=== PATIENT | female | born 1970 | race Caucasian/White ===

== ENCOUNTER 2020-04-07 11:17 | Outpatient (CLI) | payer OTHER, SELFPAY ==
--- NOTE | ~2020-04-07 | XR_ITS ---
XR chest 2V DATE: 04/07/2020 12:00 INDICATION: Cough for one month TECHNIQUE: 2 views COMPARISON: 04/24/2016 PA chest FINDINGS: Normal heart size. No hilar or mediastinal enlargement. No pulmonary infiltrate or consolid ation, pleural effusion or pulmonary vascular congestion or pneumothorax. IMPRESSION: No active cardiopulmonary disease Reviewed, dictated and finalized at location A.
== END 2020-04-07 11:18 | disposition home or self-care (01) ==
DX: R05 Cough (principal)
CPT/HCPCS: 71046

== ENCOUNTER 2021-03-09 09:32 | Outpatient (CLI) | payer OTHER, SELFPAY ==
--- NOTE | 2021-03-09 09:30 | ECG_ITS ---
Measurements Intervals [place] Rate: 56 P: 32 ME: 197 QRS: 63 QRSD: 90 T: 66 QT: 420 QTc: 405 Interpretive Statements SINUS BRADYCARDIA LOW QRS VOLTAGE IN PRECORDIAL LEADS CANNOT RULE OUT SEPTAL INFARCT, AGE INDETERMINATE ABNORMAL ECG Electronically Signed On 03-09-2021 9:51:50 CDT by Kelvin Pascual D.O.
== END 2021-03-09 09:33 | disposition home or self-care (01) ==
LOC: ANHSURGERY 09:35
PROVIDERS: Visit Provider Orthopaedic Surgery
DX: Z01.810 Encounter for preprocedural cardiovascular examination (principal); Z87.891 Personal history of nicotine dependence; R00.1 Bradycardia, unspecified; I25.2 Old myocardial infarction
CPT/HCPCS: 93005

== ENCOUNTER 2021-03-13 00:58 | Day surgery (SDC) | payer OTHER, SELFPAY ==
[2021-03-07 12:45] VITALS: BMI 23.6
--- NOTE | 2021-03-12 14:48 | WPDANESEPPF ---
Anes - Initial Pre Proc Eval Procedure: Operation Date: 03/13/21 14:00 Proposed Procedures p Open Debridement Right Lateral Epicondyle - Javier Rizo MD Date/Time: 03/12/21 14:48 Surgeon: Javier Rizo MD Pre Op Diagnosis: right lateral epicondylitis Patient Data Age: 50 Gender: F Height: 1.75 m Weight: 72.57 kg Allergies Allergy/AdvReac Type Severity Reaction Status Date / Time oxycodone AdvReac Severe NAUSEA AND Verified 03/13/21 12:28 VOMITING hydrocodone AdvReac Mild Itching Verified 03/13/21 12:28 Home Medications Medication Instructions Recorded Confirmed Type levothyroxine 100 mcg capsule 100 mcg PO DAILY 08/07/20 03/13/21 History ibuprofen 800 mg tablet 800 mg PO TID PRN 02/12/21 03/13/21 History methylprednisolone 4 mg tablets in See Rx Instructions PO PER PKG DIR 03/05/21 03/13/21 Rx a dose pack #21 ea hydrocortisone 1 applic TOPICAL TID PRN 03/07/21 03/13/21 History ECG: Date of Service: 03/09/21 Procedure(s): CA 12 lead EKG Accession Number(s): [id number] cc: ~ Measurements Intervals [place] Rate: 56 P: 32 WA: 197 QRS: 63 QRSD: 90 T: 66 QT: 420 QTc: 405 Interpretive Statements SINUS BRADYCARDIA LOW QRS VOLTAGE IN PRECORDIAL LEADS CANNOT RULE OUT SEPTAL INFARCT, AGE INDETERMINATE ABNORMAL ECG Electronically Signed On 03-09-2021 9:51:50 CDT by Kelvin Pascual D.O. Dictated By: Kelvin Pascual DO 03/09/21 0951 Patient hx anesthesia problems: none Family hx anesthesia problems: none PMFSH Past Medical History Medical History (Updated 03/12/21 @ 14:49 by Cheikh Sinclair MD) Eczema Hypothyroidism Lateral epicondylitis of right elbow Family History Family History Father Diabetes mellitus Hypertension Acute myocardial infarction Family history of congestive heart failure Social History Social History Smoking packs per day: 1 Smoking cigarettes per day: 20.0 Years smoked: 25 Smoking pack-years: 25.00 Smoking status: Former smoker Tobacco type: cigarettes Second hand tobacco smoke exposure: Yes (spouse smokes) Smoking end date: 09/27/06 Alcohol intake: current Drinks per week: 4 Alcohol use details: hard liquor Substance use: never Substance use type: does not use Living arrangements: with family Spiritual care concerns: No Anes - Eval Final PreProcedure Day of Procedure 03/12/21 14:48 Patient weight: overweight Heart: regular rate and rhythm Lungs: clear to auscultation and normal air movement Airway: Mallampati scale class II Neurological: alert and oriented Last oral intake: >/= 8 hours ASA classification: II Emergent: no Anesthetic plan: proceed Anesthesia type and monitoring: general LMA Informed Consent: The patient's anesthetic plan and its attendant risks and benefits were discussed with the patient/family/POA. Questions were solicited and answers provided to the satisfaction of the patient/family/POA.
[2021-03-13] VITALS (11 sets, daily range): BP systolic 96–132; BP diastolic 58–80; PULSE 49–70; RESP 12–16; TEMP 36.1–36.8; O2SAT 95–100
--- NOTE | 2021-03-13 09:45 | WPDHPUPDATE1 ---
History and Physical Update Update Date/Time: 03/13/21 09:45 History and Physical has been reviewed, including an updated exam of the patient. There are NO changes in the patient's condition. Risks, benefits, and alternatives have been discussed and questions answered. Patient agrees to proceed with procedure.
[2021-03-13] MEDS: ACETAMINOPHEN 500 MG TABLET 1000 MG PO (12:33)
[2021-03-13] MEDS: LACTATED RINGERS 1,000 ML 30 ML IV CONT ×2 (13:02→14:51)
[2021-03-13] MEDS: KETOROLAC 15 MG/ML VIAL (*BKC) IV PUSH (13:05)
[2021-03-13] MEDS: ceFAZolin 2 GM/D5W 50 ML 2 GM/50 ML BAG IVPB (13:37)
[2021-03-13] MEDS: BUPIVACAINE HCL 0.5% PF 30 ML VIAL INFILTRATE (14:09)
[2021-03-13] MEDS: fentaNYL CITRATE INJ (*CRX) 100 MCG/2 ML VIAL 25 MCG IV PUSH ×4 (15:01→15:23)
[2021-03-13] MEDS: HYDROmorphone HCL INJ (*CRX) 1 MG/ML SYR 0.25 MG IV PUSH ×2 (15:34→15:52)
--- NOTE | 2021-03-13 15:50 | W.PM.PROC2 ---
Procedure Note - Detailed Date of Procedure 03/13/21 Pre-op Diagnosis right lateral epicondylitis Post-op Diagnosis same Procedure Performed Lateral epicondylitis debridement right elbow. Surgeon Javier Rizo MD Anesthesia general Description of Procedure Operative details: The patient was brought to the operating room. Preoperative antibiotics were given. A general anesthetic was administered. The arm was prepped and draped in the usual sterile fashion with a well-padded tourniquet on the arm. The limb was exsanguinated and the tourniquet inflated to 250 mililiters of mercury. A longitudinal incision was created over the pathological site at the lateral epicondyle. Dissection was brought down to the interval between the common extensor tendons and the extensor carpi radialis longus. The muscle was elevated, exposing the extensor carpi radialis brevis. Degenerative pathologic tendon was identified and excised sharply. The lateral epicondyle was abraded with a rongeur. The scratch test was to confirm complete excision of pathologic tissue. The wound was carefully irrigated. The tourniquet was released. The extensor tendon origin was repaired with [id number] sutures #0 Vicryl . The skin was closed with interrupted 3-0 Monocryl suture followed by running 4-0 Monocryl suture and Steri-Strips. Sterile dressing was applied with the wrist splint. The patient was extubated and brought to the recovery room in stable condition. Estimated Blood Loss 5 Pathology none sent Complications No immediate complications Condition stable Disposition PACU
[2021-03-13] MEDS: traMADol HCL (*CRX) 50 MG TABLET PO (16:19)
[2021-03-13] MEDS: ONDANSETRON INJ 4 MG/2 ML VIAL IV PUSH (16:21)
[2021-03-13] MEDS: diphenhydrAMINE HCl INJ 50 MG/ML VIAL 25 MG IV PUSH (17:04)
[2021-03-13] MEDS: SCOPOLAMINE 1.5 MG PATCH TRANSDERM (17:06)
== END 2021-03-13 18:00 | disposition home or self-care (01) ==
PROVIDERS: Visit Provider Orthopaedic Surgery
PROC: (CPT 24110; principal; 2021-03-13 14:00)
DX: M77.11 Lateral epicondylitis, right elbow (principal); E03.9 Hypothyroidism, unspecified; L30.9 Dermatitis, unspecified; Z87.891 Personal history of nicotine dependence
CPT/HCPCS: 24359; 93005; A4565; A9270; J0690; J1100; J1170; J1200; J1885; J2250; J2405; J2704; J3010; J7120

== ENCOUNTER 2022-12-26 20:43 | Emergency (ER) | payer OTHER, SELFPAY ==
[2022-12-26] VITALS (11 sets, daily range): BP systolic 111–140; BP diastolic 78–83; PULSE 53–77; RESP 10–16; TEMP 36.1; O2SAT 97–100
--- NOTE | ~2022-12-26 | XR_ITS ---
EXAMINATION: XR chest 2V DATE: 12/26/2022 21:30 INDICATION: 3 days of midsternal chest pain TECHNIQUE: PA and lateral views of the chest were obtained. COMPARISON: Chest radiograph dated 04/07/20 FINDINGS: The lungs remain clear with no focal airspace opacities, pulmonary edema, pleural effusion or pneumot horax. The cardiomediastinal silhouette is normal. Minimal S-shaped curvature of the mid to upper tho racic spine with mild spondylosis. IMPRESSION: 1. No acute cardiopulmonary disease. Reviewed, dictated and finalized at location A.
--- NOTE | 2022-12-26 20:44 | ECG_ITS ---
Measurements Intervals [place] Rate: 69 P: 34 DC: 191 QRS: 61 QRSD: 85 T: 72 QT: 384 QTc: 411 Interpretive Statements SINUS RHYTHM LOW QRS VOLTAGE IN PRECORDIAL LEADS [QRS DEFLECTION < 1.0 mV IN CHEST LEADS] CANNOT RULE OUT SEPTAL MYOCARDIAL INFARCTION , PROBABLY OLD [40+ ms Q WAVE IN V1/V2] COMPARED TO ECG 03/09/2021 09:45:48 SINUS RHYTHM NOW PRESENT Electronically Signed On 12-27-2022 13:45:35 CDT by Efrem Omalley M.D.
[2022-12-26 21:04] LABS: Basophils Absolute Auto 0.1 K/mm3 (0.0-0.1); Basophils Percent Auto 1.2 % (0.2-1.2); Eosinophils Absolute Auto 0.3 K/mm3 (0-0.3); Eosinophils Percent Auto 4.4 % (0-4.4); Hematocrit 38.1 % (37.0-47.0); Hemoglobin 12.5 g/dL (12.0-15.0); Immature Granulocyte Absolute 0.02 K/mm3 (0.00-0.031); Immature Granulocyte Percent A 0.3 % (0-0.5); Lymphocytes Absolute Auto 2.37 K/mm3 (0.9-3.2); Lymphocytes Percent Auto 36.9 % (18.3-44.2); Mean Corpuscular HGB Conc 32.8 g/dl (32-36); Mean Corpuscular Hemoglobin 30.5 pg (26-34); Mean Corpuscular Volume 92.9 fl (80-100); Mean Platelet Volume 9.5 fl (7.4-10.4); Monocytes Absolute Auto 0.5 K/mm3 (0.1-0.6); Monocytes Percent Auto 7.6 % (2.6-8.5); Neutrophils Absolute Auto 3.2 K/mm3 (1.3-6.7); Neutrophils Percent Auto 49.6 % (45.5-73.1); Platelet Count Result 308 k/mm3 (150-375); Red Cell Distribution Width 12.8 % (11.5-14.5); White Blood Count 6.4 K/mm3 (4.5-10.0)
[2022-12-26 21:13] LABS: Alanine Aminotransferase 22 U/L (6-35); Alkaline Phosphatase 69 U/L (38-126); Anion Gap 7 mmol/L (8-16); Aspartate Amino Transferase 29 U/L (14-36); Bilirubin,Total 0.4 mg/dL (0.2-1.3); Blood Urea Nitrogen 19 mg/dL (7-17); Calcium 9.4 mg/dL (8.4-10.2); Carbon Dioxide 30 mmol/L (22-30); Chloride 102 mmol/L (98-107); Estimated CRCL calculation 85 ml/min; Estimated Glomerular Filt Rate > 60; Glucose 97 mg/dL (65-110); Lipase 106 U/L (23-300); Potassium 3.7 mmol/L (3.4-5.0); Sodium 139 mmol/L (137-145)
[2022-12-26 21:14] LABS: INR 0.9; Prothrombin Time 12.8 Seconds (11.1-14.7)
[2022-12-26 21:15] LABS: Partial Thromboplastin Time 29.7 SECONDS (22.3-36.8)
[2022-12-26 21:26] LABS: Troponin I < 0.012 ng/mL (0.000-0.034)
--- NOTE | 2022-12-26 21:53 | ED.CHESTPAIN ---
HPI - Chest Pain General Chief Complaint: Chest Pain Stated Complaint: chest pain since Friday Time Seen by Provider: 12/26/22 21:30 History of Present Illness HPI narrative: 52-year-old female reports for evaluation of intermittent left sternal chest pain x3 days. Pt reports the pain is a dull ache with intermittent sharp pains. States it does not radiate anywhere and is not pleuritic. She reports the pain occurs while she is sitting down and lasts ~2 hours then spontaneously resolved. Pt endorses this pain has happened before when she was under stress last year after her sister was dx with glioblastoma. She states she was mildly stressed last week prior the onset of her symptoms, but does not feel stressed or anxious currently. She has an apt with her PCP in 5 days, however came to the ED tonight because the chest pain has been lasting longer than it normally does. States it came on tonight 3.5 hours ago and has been constant since. She denies cough, congestion, fever, body aches or chills, neck pain, arm pain, back pain, abdominal pain, heartburn, nausea, vomiting, recent trauma or injury, shortness of breath, leg swelling. Denies personal cardiac history, diabetes, hypertension, hyperlipidemia. She has not smoked since 2006. She is currently rating the chest pain a 4-5 Related Data Home Medications Medication Instructions Recorded Confirmed levothyroxine 100 mcg capsule 100 mcg PO DAILY 08/07/20 05/31/21 ibuprofen 800 mg tablet 800 mg PO TID PRN pain 02/12/21 05/31/21 hydrocortisone 1 % topical cream 1 applic topical TID PRN eczema on 03/07/21 05/31/21 nose Allergies Allergy/AdvReac Type Severity Reaction Status Date / Time No Known Drug Allergies Allergy Other Verified 12/26/22 21:16 Review of Systems Review of Systems: CONSTITUTIONAL: Denies fever, chills EYES: Denies visual changes, redness, or discharge. ENT: Denies rhinorrhea, congestion, sore throat, or otalgia. CARDIOVASCULAR: See HPI RESPIRATORY: Denies cough or dyspnea. GASTROINTESTINAL: Denies abdominal pain, nausea, vomiting, or diarrhea. GENITOURINARY: Denies dysuria or hematuria. SKIN: Denies rash or itching. MUSCULOSKELETAL: Denies back pain, joint pain, or myalgia. NEUROLOGIC: Denies headache, numbness, dizziness, or weakness. PSYCHIATRIC: Denies anxiety or depression. [facility] Past Medical History Medical History Eczema Hypothyroidism Lateral epicondylitis of right elbow Surgical History Surgical History History of elbow surgery (~03/13/21) Lateral Epicondyle Debridement Family History Family History Father Diabetes mellitus Hypertension Acute myocardial infarction Family history of congestive heart failure Social History Social History Smoking packs per day: 1 Smoking cigarettes per day: 20.0 Years smoked: 25 Smoking pack-years: 25.00 Smoking status: Former smoker Tobacco type: cigarettes Second hand tobacco smoke exposure: Yes (spouse smokes) Smoking end date: 09/27/06 Alcohol intake: current Drinks per week: 4 Alcohol use details: hard liquor Substance use: never Substance use type: does not use Living arrangements: with family Spiritual care concerns: No Exam Narrative: GENERAL: Well-appearing, in no acute distress. Patient pleasant and conversational, speaking in full sentences. Sitting in exam chair on her phone when I walked in the room. HEAD: Normocephalic EYES: PERRLA ENT: Nares clear. Mucous membranes moist. Oropharynx without tonsillar hypertrophy exudate or other lesions. NECK: Supple. CHEST: No respiratory distress. Clear to auscultation, no adventitious breath sounds. No tenderness to palpation of chest wall HEART: Regular rate and rhythm. No mu
[2022-12-26] MEDS: ONDANSETRON INJ 4 MG/2 ML VIAL IV PUSH (22:17)
[2022-12-26] MEDS: MORPHINE SULFATE (*CRX) 2 MG/ML INJ IV PUSH (22:17)
[2022-12-26 22:32] LABS: NT Pro B Type Natriuretic Pept < 20 pg/mL (19.9-100)
[2022-12-26 22:38] LABS: D Dimer 0.31 ug/mL (<0.48)
[2022-12-27] VITALS: PULSE 51; RESP 13; O2SAT 100
[2022-12-27 00:19] LABS: Troponin I < 0.012 ng/mL (0.000-0.034)
== END 2022-12-27 00:48 | disposition home or self-care (01) ==
PROVIDERS: Emergency Medicine; Emergency Provider Physician Assistant
DX: R07.9 Chest pain, unspecified (principal); E03.9 Hypothyroidism, unspecified; Z87.891 Personal history of nicotine dependence; R94.31 Abnormal electrocardiogram [ECG] [EKG]
CPT/HCPCS: 36415; 71046; 80053; 83690; 83880; 84484; 85025; 85380; 85610; 85730; 93005; 96374; 96375; 99284; J2270; J2405